=== PATIENT | female | born 1965 | race Caucasian/White ===

== ENCOUNTER 2021-02-17 03:08 | Emergency (ER) | payer OTHER ==
[~2021-02-17] VITALS: Ht 154.9 cm; Wt 63.5 kg
[2021-02-17 03:10] VITALS: BP_SYST 125
[2021-02-17 03:11] VITALS: BP_SYST 125
== END 2021-02-17 03:31 ==
LOC: SED 03:08
DX: Z02.89 Encounter for other administrative examinations (principal)
CPT/HCPCS: 99283